=== PATIENT | male | born 1970 | race Two or more races ===

== ENCOUNTER 2021-09-23 13:24 | Inpatient (IN) | payer MEDICAID, OTHER ==
[2021-09-23] VITALS (17 sets, daily range): BP systolic 75–124; BP diastolic 52–95
[~2021-09-23] VITALS: Ht 167.6 cm; Wt 81.0 kg
[2021-09-23] MEDS ORDERED: ONDANSETRON HCL 4 MG/2 ML VIAL IV ONE (13:30)
[2021-09-23] MEDS ORDERED: HEPARIN 1,000 UNITS/ml 1ML VIAL IV ONE ×2 (13:30→17:00)
[2021-09-23] MEDS ORDERED: MORPHINE SULFATE 4 MG/ML SYR/VIAL IV ONE (13:30)
[2021-09-23] MEDS ORDERED: HEPARIN IN NS 1000Units/500mL 0 ML ONE (13:35)
[2021-09-23] MEDS ORDERED: IOHEXOL 350 MG/ML 100ML IJ ONE ×2 (13:35→14:36)
[2021-09-23] MEDS ORDERED: ANGIOMAX 250 MG VIAL IV ONE ×2 (13:38→14:48)
[2021-09-23] MEDS ORDERED: SODIUM CHL 0.9% 50 ML ONE ×2 (13:38→14:48)
[2021-09-23] MEDS ORDERED: MIDAZOLAM HCL 2MG/2ML 2ml VIAL (1mg/ml) ONE (13:38)
[2021-09-23] MEDS ORDERED: fentaNYL CITRATE 100 MCG/2 ML VL ONE (13:38)
[2021-09-23] MEDS ORDERED: ADENOSINE 6 MG/2 ML INJ IV ONE (13:42)
[2021-09-23] MEDS ORDERED: niCARdipine 25 MG/10 ML VIAL IV ONE (13:42)
[2021-09-23 13:52] LABS: Basophils # (auto) 0 10 ^3/uL (0-0.2); Eosinophils # (auto) 0 10 ^3/uL (0-0.8); Eosinophils % (auto) 0.3 % (0.0-7.0); Hematocrit 42.3 % (41.0-53.0); Hemoglobin 14.8 g/dL (13.5-17.5); Lymphocytes # (auto) 2.9 10 ^3/uL (0.4-5.4); Lymphocytes % (auto) 36.6 % (10.0-50.0); Mean Corpuscular Volume 88.5 fL (80.0-100.0); Monocytes # (auto) 0.6 10 ^3/uL (0-1.3); Monocytes % (auto) 8.3 % (0.0-12.0); Neutrophils # (auto) 4.3 10 ^3/uL (1.6-8.6); Neutrophils % (auto) 54.8 % (37.0-80.0); Nucleated Red Blood Cells % 0.2 %; Red Blood Cells 4.78 10^6/uL (4.5-5.90); Red Cell Distribution Width 12.4 % (11.8-14.3); White Blood Cell 7.8 10^3/uL (4.4-10.8)
[2021-09-23 14:05] LABS: Albumin 3.1 g/dL (3.4-5.0); BUN/Creatinine Ratio 11.7; Calcium 8.2 mg/dL (8.5-10.1); Magnesium 2.1 mg/dL (1.6-2.6)
[2021-09-23 14:10] LABS: Bilirubin, Total 0.4 mg/dL (0.2-1.0); Total Protein 6.5 g/dL (6.4-8.2)
[2021-09-23] MEDS ORDERED: EPTIFIBATIDE INJ (2MG/ML) 10ML VIAL IV ONE ×2 (14:11→15:00)
[2021-09-23] MEDS ORDERED: ATROPINE SULF 1 MG/10ml SYR ONE (14:20)
[2021-09-23] MEDS ORDERED: EPINEPHrine HCL 1 MG/10 ML SYRG ONE (14:20)
[2021-09-23] MEDS ORDERED: NOREPINEPHRINE 8 MG/250ML KIT 250 ML IV ONE (14:20)
[2021-09-23] MEDS ORDERED: DOPamine 1600MCG/ML D5W 250 ML IV ONE (14:26)
[2021-09-23] MEDS ORDERED: ONDANSETRON HCL 4 MG/2 ML VIAL ONE (15:02)
[2021-09-23] MEDS ORDERED: ASPirin 325 MG TAB ONE (15:21)
[2021-09-23] MEDS ORDERED: TICAGRELOR 90 MG TAB ONE ×2 (15:21→15:25)
[2021-09-23] MEDS ORDERED: EPTIFIBATIDE DRIP(0.75MG/ML) 100 ML IV ONE ×2 (15:22→16:15)
[2021-09-23] MEDS ORDERED: HEPARIN SODIUM (PORCINE) 5000 UNITS/ML 1ML VIAL IV ONE (16:15)
[2021-09-23] MEDS ORDERED: ACETAMINOPHEN 500 MG TAB PO PRN (16:15)
[2021-09-23] MEDS ORDERED: ONDANSETRON HCL 4 MG/2 ML VIAL IV PRN (16:15)
[2021-09-23] MEDS ORDERED: NITROGLYCERIN 0.4 MG SL TAB SL PRN ×2 (16:15)
[2021-09-23] MEDS ORDERED: MORPHINE SULFATE 4 MG/ML SYR/VIAL IV PRN (16:15)
[2021-09-23] MEDS ORDERED: MORPHINE SULFATE INJECTION 2 MG/ML SYRG IV PRN ×2 (16:15→18:30)
[2021-09-23] MEDS ORDERED: MILK OF MAGNESIA 30ML SUSP PO ONE (16:15)
[2021-09-23] MEDS ORDERED: ZOLPIDEM TARTRATE 5 MG TAB PO PRN (16:15)
[2021-09-23] MEDS: DOPamine 1600MCG/ML D5W 250 ML IV SCH (16:33)
[2021-09-23] MEDS: NOREPINEPHRINE 8 MG/250ML KIT 250 ML IV SCH (16:34)
[2021-09-23 18:09] LABS: Hematocrit 47.9 % (41.0-53.0); Hemoglobin 16.6 g/dL (13.5-17.5); Mean Corpuscular Hemoglobin 30.7 pg (28.0-32.0); Mean Corpuscular Hgb Conc. 34.6 g/dL (32.0-36.0); Mean Corpuscular Volume 88.9 fL (80.0-100.0); Red Blood Cells 5.39 10^6/uL (4.5-5.90); Red Cell Distribution Width 12.3 % (11.8-14.3); White Blood Cell 20.6 10^3/uL (4.4-10.8)
[2021-09-23] MEDS: FUROSEMIDE 20 MG/2 ML VIAL IV SCH (18:11)
[2021-09-23 18:12] LABS: Basophils % (manual) 0 (0.0-2.0); Blast Cells 0; Eosinophils % (manual) 0 (0-7); Metamyelocytes % 0; Myelocytes % 0; Promyelocytes % 0; Reactive Lymphocytes 0
[2021-09-23] MEDS ORDERED: LORazepam 0.5 MG TAB PO ONE (18:15)
[2021-09-23] MEDS ORDERED: LORazepam 0.5 MG TAB PO PRN (18:15)
[2021-09-23 18:38] LABS: INR 1.21 (0.9-1.15); Partial Thromboplastin Time 44.1 sec (23.6-33.0)
[2021-09-23] MEDS: EPTIFIBATIDE DRIP(0.75MG/ML) 100 ML IV SCH (20:00)
[2021-09-23] MEDS: HEPARIN DRIP/D5W 100UNITS/ML 250 ML IV SCH (20:19)
[2021-09-23 20:26] LABS: Band Neutrophils % (manual) 1; Lymphocytes % (manual) 2 (10.0-50.0); Monocytes % (manual) 5 (0-12)
[2021-09-23] MEDS: ATORVASTATIN 20 MG TAB PO SCH (22:14)
[2021-09-23] MEDS: SODIUM CHLOR 0.9% PF (SALINE LOCK) 10ML VIAL/SYR IV SCH (22:14)
[2021-09-23] MEDS: PANTOPRAZOLE 40 MG/10 ML VIAL INJ IV SCH (22:14)
[2021-09-24] VITALS (96 sets, daily range): BP systolic 78–128; BP diastolic 47–87
[2021-09-24 02:40] LABS: INR 1.03 (0.9-1.15); Partial Thromboplastin Time 32.7 sec (23.6-33.0)
[2021-09-24] MEDS ORDERED: HEPARIN SODIUM (PORCINE) 5000 UNITS/ML 1ML VIAL ONE (02:46)
[2021-09-24 04:45] LABS: Basophils # (auto) 0 10 ^3/uL (0-0.2); Basophils % (auto) 0.1 % (0.0-2.0); Eosinophils # (auto) 0 10 ^3/uL (0-0.8); Hematocrit 43.6 % (41.0-53.0); Hemoglobin 15.7 g/dL (13.5-17.5); Lymphocytes # (auto) 1.3 10 ^3/uL (0.4-5.4); Lymphocytes % (auto) 8.2 % (10.0-50.0); Mean Corpuscular Hemoglobin 31.7 pg (28.0-32.0); Mean Corpuscular Volume 88.1 fL (80.0-100.0); Monocytes # (auto) 1.4 10 ^3/uL (0-1.3); Monocytes % (auto) 8.6 % (0.0-12.0); Neutrophils # (auto) 13.3 10 ^3/uL (1.6-8.6); Neutrophils % (auto) 83.1 % (37.0-80.0); Red Blood Cells 4.95 10^6/uL (4.5-5.90); Red Cell Distribution Width 12.4 % (11.8-14.3)
[2021-09-24 05:05] LABS: Anion Gap 10 (5-15); BUN/Creatinine Ratio 14.3; Blood Urea Nitrogen 15 mg/dL (7-18); Calcium 8.7 mg/dL (8.5-10.1); Carbon Dioxide 24 mmol/L (21-32); Chloride 101 mmol/L (98-107); GFR African American 97 mL/min; GFR Non-African American 80 mL/min; Glucose 136 mg/dL (74-106); Potassium 3.7 mmol/L (3.5-5.1); Sodium 135 mmol/L (136-145)
[2021-09-24] MEDS: EPTIFIBATIDE DRIP(0.75MG/ML) 100 ML IV SCH ×3 (05:37→20:05)
[2021-09-24] MEDS: SODIUM CHLOR 0.9% PF (SALINE LOCK) 10ML VIAL/SYR IV SCH ×3 (05:37→22:27)
[2021-09-24] MEDS: FUROSEMIDE 20 MG/2 ML VIAL IV SCH ×2 (05:44→18:04)
[2021-09-24] MEDS: DOPamine 1600MCG/ML D5W 250 ML IV SCH ×2 (09:03→21:17)
[2021-09-24] MEDS ORDERED: OPTISON 3ml Vial for INJ IV ONE ×2 (09:15→09:21)
[2021-09-24] MEDS: PIPERACILLIN-TAZOB 3.375GM 100 ML IV SCH ×2 (10:00→18:04)
[2021-09-24] MEDS: PANTOPRAZOLE 40 MG/10 ML VIAL INJ IV SCH ×2 (10:09→22:27)
[2021-09-24 10:13] LABS: INR 1.07 (0.9-1.15)
[2021-09-24 10:18] LABS: Partial Thromboplastin Time 71.6 sec (23.6-33.0)
[2021-09-24 15:36] LABS: INR 1.05 (0.9-1.15); Partial Thromboplastin Time 59.7 sec (23.6-33.0)
[2021-09-24] MEDS: NOREPINEPHRINE 8 MG/250ML KIT 250 ML IV SCH (16:05)
[2021-09-24] MEDS: HEPARIN DRIP/D5W 100UNITS/ML 250 ML IV SCH ×2 (16:15→19:42)
[2021-09-24 16:44] LABS: Cholesterol 245 mg/dL (< 200); HDL Cholesterol 44 mg/dL (40-59); LDL Cholesterol 160 mg/dL (< 100); Triglycerides 189 mg/dL (< 150)
[2021-09-24] MEDS: ASPirin-EC 81 mg tab PO SCH (18:03)
[2021-09-24] MEDS: TICAGRELOR 90 MG TAB PO SCH ×2 (18:24→22:00)
[2021-09-24] MEDS: ATORVASTATIN 20 MG TAB PO SCH (22:27)
[2021-09-24 22:32] LABS: INR 1.05 (0.9-1.15)
[2021-09-24 22:52] LABS: Partial Thromboplastin Time 73.4 sec (23.6-33.0)
[2021-09-25] VITALS (96 sets, daily range): BP systolic 76–125; BP diastolic 47–79
[2021-09-25] MEDS: EPTIFIBATIDE DRIP(0.75MG/ML) 100 ML IV SCH ×4 (01:30→19:38)
[2021-09-25] MEDS: PIPERACILLIN-TAZOB 3.375GM 100 ML IV SCH ×3 (02:15→18:26)
[2021-09-25 04:15] LABS: Basophils # (auto) 0 10 ^3/uL (0-0.2); Basophils % (auto) 0.4 % (0.0-2.0); Eosinophils # (auto) 0 10 ^3/uL (0-0.8); Eosinophils % (auto) 0.3 % (0.0-7.0); Hematocrit 39.3 % (41.0-53.0); Lymphocytes % (auto) 16.6 % (10.0-50.0); Mean Corpuscular Hemoglobin 31.4 pg (28.0-32.0); Mean Corpuscular Hgb Conc. 35.7 g/dL (32.0-36.0); Mean Corpuscular Volume 87.9 fL (80.0-100.0); Monocytes # (auto) 1.3 10 ^3/uL (0-1.3); Monocytes % (auto) 10.4 % (0.0-12.0); Neutrophils # (auto) 8.7 10 ^3/uL (1.6-8.6); Neutrophils % (auto) 72.3 % (37.0-80.0); Red Blood Cells 4.47 10^6/uL (4.5-5.90); Red Cell Distribution Width 12.6 % (11.8-14.3)
[2021-09-25 04:19] LABS: Potassium 3.2 mmol/L (3.5-5.1)
[2021-09-25 04:24] LABS: Albumin 3.1 g/dL (3.4-5.0); BUN/Creatinine Ratio 16.5; Calcium 8.3 mg/dL (8.5-10.1)
[2021-09-25 04:42] LABS: Total Protein 6.7 g/dL (6.4-8.2)
[2021-09-25 05:32] LABS: INR 1.06 (0.9-1.15)
[2021-09-25 05:35] LABS: Partial Thromboplastin Time 95.6 sec (23.6-33.0)
[2021-09-25] MEDS: SODIUM CHLOR 0.9% PF (SALINE LOCK) 10ML VIAL/SYR IV SCH ×3 (06:29→21:59)
[2021-09-25] MEDS: NOREPINEPHRINE 8 MG/250ML KIT 250 ML IV SCH (07:22)
[2021-09-25] MEDS ORDERED: POTASSIUM CHL 10MEQ/50ML 50 ML IV SCH (08:45)
[2021-09-25] MEDS: PANTOPRAZOLE 40 MG/10 ML VIAL INJ IV SCH ×2 (08:47→22:00)
[2021-09-25] MEDS: ASPirin-EC 81 mg tab PO SCH (11:57)
[2021-09-25] MEDS: TICAGRELOR 90 MG TAB PO SCH ×2 (11:57→22:00)
[2021-09-25] MEDS: Ensure HIGH Protein Chocolate 8oz Bottle PO SCH ×2 (11:58→18:27)
[2021-09-25] MEDS ORDERED: POTASSIUM EFFERVESENT TAB 25 MEQ PO ONE (12:00)
[2021-09-25] MEDS ORDERED: ERGOCALCIFEROL 50,000 UNIT(1.25MG) CAP PO SCH (15:45)
[2021-09-25 17:23] LABS: INR 1.08 (0.9-1.15)
[2021-09-25 17:25] LABS: Partial Thromboplastin Time > 139.0 sec (23.6-33.0)
[2021-09-25] MEDS: HEPARIN DRIP/D5W 100UNITS/ML 250 ML IV SCH (18:31)
[2021-09-25] MEDS: DOPamine 1600MCG/ML D5W 250 ML IV SCH (18:32)
[2021-09-25] MEDS: HYDROcodone-ACET 5/325MG TAB PO PRN (23:22)
[2021-09-26] VITALS (95 sets, daily range): BP systolic 72–134; BP diastolic 46–78
[2021-09-26 01:43] LABS: INR 1.01 (0.9-1.15); Partial Thromboplastin Time 39.3 sec (23.6-33.0)
[2021-09-26] MEDS ORDERED: EPTIFIBATIDE DRIP(0.75MG/ML) 100 ML IV SCH (02:30)
[2021-09-26] MEDS: PIPERACILLIN-TAZOB 3.375GM 100 ML IV SCH ×3 (02:32→18:40)
[2021-09-26] MEDS: DOPamine 1600MCG/ML D5W 250 ML IV SCH (03:59)
[2021-09-26 04:12] LABS: Basophils # (auto) 0 10 ^3/uL (0-0.2); Basophils % (auto) 0.4 % (0.0-2.0); Eosinophils # (auto) 0.1 10 ^3/uL (0-0.8); Hematocrit 35.9 % (41.0-53.0); Lymphocytes # (auto) 2.3 10 ^3/uL (0.4-5.4); Lymphocytes % (auto) 21.8 % (10.0-50.0); Mean Corpuscular Hemoglobin 31.9 pg (28.0-32.0); Mean Corpuscular Hgb Conc. 36.1 g/dL (32.0-36.0); Mean Corpuscular Volume 88.3 fL (80.0-100.0); Monocytes # (auto) 1.1 10 ^3/uL (0-1.3); Monocytes % (auto) 10.2 % (0.0-12.0); Neutrophils # (auto) 7.1 10 ^3/uL (1.6-8.6); Neutrophils % (auto) 66.6 % (37.0-80.0); Nucleated Red Blood Cells % 0.1 %; Red Blood Cells 4.07 10^6/uL (4.5-5.90); Red Cell Distribution Width 12.6 % (11.8-14.3); White Blood Cell 10.6 10^3/uL (4.4-10.8)
[2021-09-26 04:27] LABS: Albumin 2.8 g/dL (3.4-5.0); Calcium 8.3 mg/dL (8.5-10.1); Magnesium 2.5 mg/dL (1.6-2.6); Potassium 3.5 mmol/L (3.5-5.1)
[2021-09-26 04:49] LABS: Bilirubin, Total 0.8 mg/dL (0.2-1.0); Total Protein 6.3 g/dL (6.4-8.2)
[2021-09-26] MEDS: SODIUM CHLOR 0.9% PF (SALINE LOCK) 10ML VIAL/SYR IV SCH ×3 (06:00→22:00)
[2021-09-26] MEDS: Ensure HIGH Protein Chocolate 8oz Bottle PO SCH ×3 (08:00→18:00)
[2021-09-26 08:16] LABS: INR 1.01 (0.9-1.15); Partial Thromboplastin Time 45.6 sec (23.6-33.0)
[2021-09-26] MEDS: PANTOPRAZOLE 40 MG/10 ML VIAL INJ IV SCH ×2 (10:00→10:22)
[2021-09-26] MEDS ORDERED: FUROSEMIDE 20 MG/2 ML VIAL IV SCH (10:00)
[2021-09-26] MEDS: ASPirin-EC 81 mg tab PO SCH (10:21)
[2021-09-26] MEDS: TICAGRELOR 90 MG TAB PO SCH ×2 (10:21→22:33)
[2021-09-26] MEDS ORDERED: DOXYCYCLINE 100 MG TAB/CAP PO ONE (11:00)
[2021-09-26] MEDS: HYDROcodone-ACET 5/325MG TAB PO PRN (15:37)
[2021-09-26 16:06] LABS: Partial Thromboplastin Time 42.1 sec (23.6-33.0)
[2021-09-26] MEDS: NOREPINEPHRINE 8 MG/250ML KIT 250 ML IV SCH (16:15)
[2021-09-26] MEDS ORDERED: HEPARIN DRIP/D5W 100UNITS/ML 250 ML IV SCH (16:30)
[2021-09-26] MEDS ORDERED: MIDAZOLAM HCL 2MG/2ML 2ml VIAL (1mg/ml) ONE (18:10)
[2021-09-26] MEDS ORDERED: LIDOCAINE 1% (LOCAL ANESTH.) PF 5ml SDV ONE (18:11)
[2021-09-26] MEDS: FUROSEMIDE 20 MG/2 ML VIAL IV SCH (18:40)
[2021-09-26] MEDS: DOXYCYCLINE 100 MG TAB/CAP PO SCH (22:34)
[2021-09-27] VITALS (94 sets, daily range): BP systolic 75–111; BP diastolic 46–79
[2021-09-27] MEDS: PIPERACILLIN-TAZOB 3.375GM 100 ML IV SCH ×3 (02:45→17:33)
[2021-09-27] MEDS: DOPamine 1600MCG/ML D5W 250 ML IV SCH ×2 (04:26→21:03)
[2021-09-27 04:54] LABS: Basophils # (auto) 0.1 10 ^3/uL (0-0.2); Basophils % (auto) 0.6 % (0.0-2.0); Eosinophils # (auto) 0.2 10 ^3/uL (0-0.8); Eosinophils % (auto) 1.9 % (0.0-7.0); Hematocrit 38.2 % (41.0-53.0); Hemoglobin 13.8 g/dL (13.5-17.5); Lymphocytes % (auto) 18.9 % (10.0-50.0); Mean Corpuscular Hemoglobin 31.6 pg (28.0-32.0); Mean Corpuscular Hgb Conc. 36.2 g/dL (32.0-36.0); Mean Corpuscular Volume 87.5 fL (80.0-100.0); Neutrophils # (auto) 7.5 10 ^3/uL (1.6-8.6); Neutrophils % (auto) 69.6 % (37.0-80.0); Nucleated Red Blood Cells % 0.1 %; Red Blood Cells 4.37 10^6/uL (4.5-5.90); Red Cell Distribution Width 12.5 % (11.8-14.3); White Blood Cell 10.8 10^3/uL (4.4-10.8)
[2021-09-27 05:10] LABS: Potassium 3.3 mmol/L (3.5-5.1)
[2021-09-27 05:12] LABS: Urine WBC None Seen /hpf (0 - 3)
[2021-09-27 05:18] LABS: BUN/Creatinine Ratio 16.5; Calcium 8.7 mg/dL (8.5-10.1); Magnesium 2.6 mg/dL (1.6-2.6)
[2021-09-27 05:25] LABS: Urine Bacteria NONE SEEN /hpf (None Seen); Urine Blood Negative /uL (Negative); Urine Hyaline Cast FEW /lpf (0 - 2); Urine Specific Gravity 1.007 (1.001-1.035)
[2021-09-27 05:37] LABS: Phosphorus 3.3 mg/dL (2.5-4.90); Total Protein 7.2 g/dL (6.4-8.2)
[2021-09-27] MEDS: FUROSEMIDE 20 MG/2 ML VIAL IV SCH ×2 (06:00→17:35)
[2021-09-27] MEDS: SODIUM CHLOR 0.9% PF (SALINE LOCK) 10ML VIAL/SYR IV SCH ×3 (06:01→21:49)
[2021-09-27] MEDS: Ensure HIGH Protein Chocolate 8oz Bottle PO SCH ×3 (08:00→18:00)
[2021-09-27] MEDS: DOXYCYCLINE 100 MG TAB/CAP PO SCH ×2 (10:23→21:49)
[2021-09-27] MEDS: FAMOTIDINE (10MG/ML) 2ML VL IV SCH (10:23)
[2021-09-27] MEDS: ASPirin-EC 81 mg tab PO SCH (10:24)
[2021-09-27] MEDS: TICAGRELOR 90 MG TAB PO SCH ×2 (10:24→21:49)
[2021-09-27] MEDS ORDERED: POTASSIUM CHL 20 Meq TABLET PO ONE (12:45)
[2021-09-27] MEDS: NOREPINEPHRINE 8 MG/250ML KIT 250 ML IV SCH (16:15)
[2021-09-27] MEDS ORDERED: MIDAZOLAM HCL 2MG/2ML 2ml VIAL (1mg/ml) IV ONE (18:30)
[2021-09-27] MEDS ORDERED: ALBUMIN 5% 250 ML IV ONE (23:43)
[2021-09-28] VITALS (38 sets, daily range): BP systolic 69–112; BP diastolic 44–85
[2021-09-28] MEDS: PIPERACILLIN-TAZOB 3.375GM 100 ML IV SCH ×2 (01:06→10:18)
[2021-09-28] MEDS ORDERED: ALBUMIN 5% 250 ML IV ONE (02:04)
[2021-09-28 04:39] LABS: Basophils # (auto) 0.1 10 ^3/uL (0-0.2); Basophils % (auto) 0.6 % (0.0-2.0); Eosinophils # (auto) 0.2 10 ^3/uL (0-0.8); Eosinophils % (auto) 1.9 % (0.0-7.0); Hematocrit 37.3 % (41.0-53.0); Hemoglobin 13.4 g/dL (13.5-17.5); Lymphocytes # (auto) 2.4 10 ^3/uL (0.4-5.4); Lymphocytes % (auto) 21.3 % (10.0-50.0); Mean Corpuscular Hemoglobin 31.8 pg (28.0-32.0); Mean Corpuscular Volume 88.3 fL (80.0-100.0); Monocytes # (auto) 0.9 10 ^3/uL (0-1.3); Monocytes % (auto) 8.4 % (0.0-12.0); Neutrophils # (auto) 7.6 10 ^3/uL (1.6-8.6); Neutrophils % (auto) 67.8 % (37.0-80.0); Nucleated Red Blood Cells % 0.1 %; Red Blood Cells 4.22 10^6/uL (4.5-5.90); Red Cell Distribution Width 12.4 % (11.8-14.3); White Blood Cell 11.2 10^3/uL (4.4-10.8)
[2021-09-28 04:46] LABS: Albumin 3.3 g/dL (3.4-5.0); Calcium 8.6 mg/dL (8.5-10.1); Magnesium 2.4 mg/dL (1.6-2.6); Potassium 3.1 mmol/L (3.5-5.1)
[2021-09-28 04:51] LABS: BUN/Creatinine Ratio 19.8; Bilirubin, Total 1.1 mg/dL (0.2-1.0); Phosphorus 3.6 mg/dL (2.5-4.90); Total Protein 7.2 g/dL (6.4-8.2)
[2021-09-28] MEDS: SODIUM CHLOR 0.9% PF (SALINE LOCK) 10ML VIAL/SYR IV SCH ×3 (05:16→21:40)
[2021-09-28] MEDS: FUROSEMIDE 20 MG/2 ML VIAL IV SCH ×2 (05:16→19:02)
[2021-09-28] MEDS ORDERED: POTASSIUM EFFERVESENT TAB 25 MEQ PO ONE (07:45)
[2021-09-28] MEDS: Ensure HIGH Protein Chocolate 8oz Bottle PO SCH ×3 (08:03→18:00)
[2021-09-28] MEDS: ASPirin-EC 81 mg tab PO SCH (10:18)
[2021-09-28] MEDS: FAMOTIDINE (10MG/ML) 2ML VL IV SCH (10:18)
[2021-09-28] MEDS: TICAGRELOR 90 MG TAB PO SCH ×2 (10:18→21:40)
[2021-09-28] MEDS: DOXYCYCLINE 100 MG TAB/CAP PO SCH ×2 (10:18→21:43)
[2021-09-28] MEDS: DOPamine 1600MCG/ML D5W 250 ML IV SCH (13:51)
[2021-09-28] MEDS: ATORVASTATIN 20 MG TAB PO SCH (21:42)
[2021-09-29 05:54] LABS: Basophils # (auto) 0.1 10 ^3/uL (0-0.2); Eosinophils # (auto) 0.3 10 ^3/uL (0-0.8); Eosinophils % (auto) 2.6 % (0.0-7.0); Hematocrit 38.2 % (41.0-53.0); Hemoglobin 13.6 g/dL (13.5-17.5); Lymphocytes # (auto) 2.7 10 ^3/uL (0.4-5.4); Lymphocytes % (auto) 22.7 % (10.0-50.0); Mean Corpuscular Hemoglobin 31.1 pg (28.0-32.0); Mean Corpuscular Hgb Conc. 35.6 g/dL (32.0-36.0); Mean Corpuscular Volume 87.4 fL (80.0-100.0); Monocytes # (auto) 1.1 10 ^3/uL (0-1.3); Monocytes % (auto) 9.5 % (0.0-12.0); Neutrophils # (auto) 7.7 10 ^3/uL (1.6-8.6); Neutrophils % (auto) 64.2 % (37.0-80.0); Nucleated Red Blood Cells % 0.1 %; Red Blood Cells 4.38 10^6/uL (4.5-5.90); Red Cell Distribution Width 12.9 % (11.8-14.3); White Blood Cell 11.9 10^3/uL (4.4-10.8)
[2021-09-29 06:00] VITALS: BP 107/66
[2021-09-29] MEDS: SODIUM CHLOR 0.9% PF (SALINE LOCK) 10ML VIAL/SYR IV SCH ×3 (06:00→22:18)
[2021-09-29] MEDS: FUROSEMIDE 20 MG/2 ML VIAL IV SCH ×2 (06:00→18:41)
[2021-09-29 06:11] LABS: Potassium 3.3 mmol/L (3.5-5.1)
[2021-09-29 06:16] LABS: Albumin 3.4 g/dL (3.4-5.0); BUN/Creatinine Ratio 16.5
[2021-09-29 06:18] LABS: Bilirubin, Total 1.4 mg/dL (0.2-1.0); Total Protein 7.4 g/dL (6.4-8.2)
[2021-09-29] MEDS: TICAGRELOR 90 MG TAB PO SCH ×2 (09:19→22:23)
[2021-09-29] MEDS: ASPirin-EC 81 mg tab PO SCH (09:19)
[2021-09-29] MEDS: FAMOTIDINE (10MG/ML) 2ML VL IV SCH (09:19)
[2021-09-29] MEDS: Ensure HIGH Protein Chocolate 8oz Bottle PO SCH ×3 (09:19→18:41)
[2021-09-29] MEDS: DOXYCYCLINE 100 MG TAB/CAP PO SCH ×2 (09:20→22:23)
[2021-09-29] MEDS ORDERED: POTASSIUM CHL 20 Meq TABLET PO ONE (09:30)
[2021-09-29 12:46] VITALS: BP 115/84
[2021-09-29 12:48] VITALS: BP 115/84
[2021-09-29 17:00] VITALS: BP 112/76
[2021-09-29 22:00] VITALS: BP 111/77
[2021-09-29] MEDS: ATORVASTATIN 20 MG TAB PO SCH (22:23)
[2021-09-30 05:00] VITALS: BP 107/69
[2021-09-30] MEDS: SODIUM CHLOR 0.9% PF (SALINE LOCK) 10ML VIAL/SYR IV SCH (05:37)
[2021-09-30] MEDS: FUROSEMIDE 20 MG/2 ML VIAL IV SCH (05:38)
[2021-09-30 06:34] LABS: Potassium 3.4 mmol/L (3.5-5.1)
[2021-09-30 06:38] LABS: Basophils # (auto) 0.1 10 ^3/uL (0-0.2); Basophils % (auto) 0.6 % (0.0-2.0); Eosinophils # (auto) 0.3 10 ^3/uL (0-0.8); Eosinophils % (auto) 2.3 % (0.0-7.0); Hematocrit 39.2 % (41.0-53.0); Lymphocytes # (auto) 3.1 10 ^3/uL (0.4-5.4); Lymphocytes % (auto) 22.5 % (10.0-50.0); Mean Corpuscular Hemoglobin 31.4 pg (28.0-32.0); Mean Corpuscular Hgb Conc. 35.7 g/dL (32.0-36.0); Mean Corpuscular Volume 88.1 fL (80.0-100.0); Monocytes # (auto) 1.2 10 ^3/uL (0-1.3); Neutrophils # (auto) 9.1 10 ^3/uL (1.6-8.6); Neutrophils % (auto) 65.6 % (37.0-80.0); Nucleated Red Blood Cells % 0.1 %; Red Blood Cells 4.45 10^6/uL (4.5-5.90); Red Cell Distribution Width 12.7 % (11.8-14.3); White Blood Cell 13.9 10^3/uL (4.4-10.8)
[2021-09-30 06:47] LABS: Albumin 3.5 g/dL (3.4-5.0); BUN/Creatinine Ratio 18.4; Bilirubin, Total 1.3 mg/dL (0.2-1.0); Calcium 8.9 mg/dL (8.5-10.1); Total Protein 7.8 g/dL (6.4-8.2)
[2021-09-30] MEDS: Ensure HIGH Protein Chocolate 8oz Bottle PO SCH ×2 (08:00→13:32)
[2021-09-30 08:15] VITALS: BP 94/69
[2021-09-30] MEDS: TICAGRELOR 90 MG TAB PO SCH (09:39)
[2021-09-30] MEDS: DOXYCYCLINE 100 MG TAB/CAP PO SCH (09:40)
[2021-09-30] MEDS: ASPirin-EC 81 mg tab PO SCH (09:40)
[2021-09-30] MEDS: FAMOTIDINE (10MG/ML) 2ML VL IV SCH (09:49)
[2021-09-30] MEDS ORDERED: POTASSIUM CHL 20 Meq TABLET PO ONE (13:00)
[2021-09-30 13:03] VITALS: BP 101/73
== END 2021-09-30 15:50 | disposition home or self-care (01) | DRG 174 ==
LOC: EDBD 13:24 → ER 13:24 → ICU WEST 16:06 → TELE-CENTR 09-28 23:30
PROVIDERS: ADMIT Specialist; ATTEND Hospitalist
PROC: 027034Z Dilation of Coronary Artery, One Artery with Drug-eluting Intraluminal Device, Percutaneous Approach (ICD-10-PCS; principal; 2021-09-23)
PROC: 5A02210 Assistance with Cardiac Output using Balloon Pump, Continuous (ICD-10-PCS; 2021-09-23)
PROC: 02C03ZZ Extirpation of Matter from Coronary Artery, One Artery, Percutaneous Approach (ICD-10-PCS; 2021-09-23)
PROC: 04HK33Z Insertion of Infusion Device into Right Femoral Artery, Percutaneous Approach (ICD-10-PCS; 2021-09-23)
PROC: B41FYZZ Fluoroscopy of Right Lower Extremity Arteries using Other Contrast (ICD-10-PCS; 2021-09-23)
PROC: B210YZZ Fluoroscopy of Single Coronary Artery using Other Contrast (ICD-10-PCS; 2021-09-23)
PROC: 05HD33Z Insertion of Infusion Device into Right Cephalic Vein, Percutaneous Approach (ICD-10-PCS; 2021-09-23)
PROC: B54MZZA Ultrasonography of Right Upper Extremity Veins, Guidance (ICD-10-PCS; 2021-09-23)
PROC: 4A023N7 Measurement of Cardiac Sampling and Pressure, Left Heart, Percutaneous Approach (ICD-10-PCS; 2021-09-23)
PROC: B211YZZ Fluoroscopy of Multiple Coronary Arteries using Other Contrast (ICD-10-PCS; 2021-09-23)
DX: I21.09 ST elevation (STEMI) myocardial infarction involving other coronary artery of anterior wall (principal); R57.0 Cardiogenic shock; I11.0 Hypertensive heart disease with heart failure; I50.20 Unspecified systolic (congestive) heart failure; D72.829 Elevated white blood cell count, unspecified; E66.9 Obesity, unspecified; E55.9 Vitamin D deficiency, unspecified; E87.6 Hypokalemia; Z20.822 Contact with and (suspected) exposure to COVID-19; R74.01 Elevation of levels of liver transaminase levels; Z79.82 Long term (current) use of aspirin; Z82.49 Family history of ischemic heart disease and other diseases of the circulatory system; Z83.3 Family history of diabetes mellitus; Z80.9 Family history of malignant neoplasm, unspecified; Z68.28 Body mass index [BMI] 28.0-28.9, adult
CPT/HCPCS: 33967; 36415; 36620; 71045; 80048; 80053; 80061; 81001; 82306; 83036; 83735; 84100; 84484; 85007; 85025; 85027; 85610; 85730; 87040; 87081; 92933; 93005; 93306; 93454; 93458; 96365; 96375; 97163; 99152; 99153; C1874; C9113; G0378; J0153; J2250; J2405; J2543; J3490; Q9956

== ENCOUNTER 2022-09-03 12:14 | Emergency (ER) | payer MEDICAID ==
[~2022-09-03] VITALS: Ht 167.6 cm; Wt 77.1 kg
[2022-09-03 13:00] LABS: Basophils # (auto) 0 10 ^3/uL (0-0.2); Basophils % (auto) 0.2 % (0.0-2.0); Eosinophils # (auto) 0 10 ^3/uL (0-0.8); Eosinophils % (auto) 0.1 % (0.0-7.0); Hematocrit 50.8 % (41.0-53.0); Hemoglobin 17.5 g/dL (13.5-17.5); Mean Corpuscular Hemoglobin 31.2 pg (28.0-32.0); Mean Corpuscular Hgb Conc. 34.4 g/dL (32.0-36.0); Mean Corpuscular Volume 90.7 fL (80.0-100.0); Monocytes # (auto) 0.4 10 ^3/uL (0-1.3); Neutrophils # (auto) 7.9 10 ^3/uL (1.6-8.6); Neutrophils % (auto) 84.7 % (37.0-80.0); Red Cell Distribution Width 12.8 % (11.8-14.3); White Blood Cell 9.4 10^3/uL (4.4-10.8)
[2022-09-03 13:22] LABS: Potassium 4.2 mmol/L (3.5-5.1)
[2022-09-03 13:28] LABS: Albumin 4.2 g/dL (3.4-5.0); BUN/Creatinine Ratio 16.3; Bilirubin, Total 0.6 mg/dL (0.2-1.0); Total Protein 8.1 g/dL (6.4-8.2)
[2022-09-03] MEDS ORDERED: ASPirin 325 MG TAB PO ONE (14:30)
[2022-09-03 16:28] VITALS: BP 133/86
== END 2022-09-03 16:36 | disposition home or self-care (01) ==
LOC: ER 12:14
DX: I10 Essential (primary) hypertension (principal); R07.89 Other chest pain; E78.5 Hyperlipidemia, unspecified
CPT/HCPCS: 36415; 71045; 80053; 83880; 84484; 85025; 85379; 93005